=== PATIENT | female | born 1955 | race Hispanic/Latino ===

== ENCOUNTER 2018-09-03 08:55 | Emergency (ER) | payer BC ==
[2018-09-03] MEDS ORDERED: NA CHLORIDE 0.9% 500 ML ONE (10:35)
[2018-09-03] MEDS ORDERED: MECLIZINE HCL 12.5 MG TAB ONE ×2 (10:35→12:17)
[2018-09-03] MEDS ORDERED: ONDANSETRON 4 MG/2 ML VIAL ONE (10:35)
--- NOTE | 2018-09-03 10:48 | RAD REPORT ---
EXAM DESCRIPTION: CT - Head Brain Wo Cont - 09/03/2018 10:37 am CLINICAL HISTORY: Headache, persistent dizziness COMPARISON: None. TECHNIQUE: Axial 5 mm thick images of the head were obtained without IV contrast. All CT scans are performed using dose optimization technique as appropriate and may include automated exposure control or mA/KV adjustment according to patient size. FINDINGS: No intracranial hemorrhage, mass, edema or shift of mid-line structures. No acute cortical based infarction. Mild chronic ischemic changes are scattered in the cerebral white matter. No basal ganglia or brainstem chronic ischemic change confirmed. Mild atrophy changes are present. Ventricles are normal. Mastoid air cells and visualized portions of the paranasal sinuses are clear. No acute bony findings. IMPRESSION: No hemorrhage, mass or acute cortical based infarction identified. Mild chronic ischemic changes are present potentially masking nonhemorrhagic CVA. As clinical findings warrant, MR imaging could be performed if there are ongoing concerns for CVA.
[2018-09-03 11:05] LABS: Absolute Lymphocytes (CBC) 2.5 K/uL (0.7-4.9); Absolute Monocytes 0.6 K/uL (0.1-1.3); Basophils % 0.6 % (0-1.3); Eosinophils % 2.1 % (0-4.4); Hematocrit 42.9 % (36.0-45.0); Lymphocytes % 19.9 % (15.3-44.8); MCH 32.7 pg (27.0-35.0); MCV 96.9 fL (80-100); MPV 8.8 fL (7.6-11.3); Monocytes % 4.8 % (3.3-12.3); RBC Red Blood Cell Count 4.42 M/uL (3.86-4.86)
[2018-09-03 11:27] LABS: ALT/SGPT 23 U/L (12-78); AST/SGOT 12 U/L (15-37); Albumin 3.3 g/dL (3.4-5.0); Alkaline Phosphatase 143 U/L (45-117); BUN Blood Urea Nitrogen 12 mg/dL (7-18); Bicarbonate 26 mmol/L (21-32); Bilirubin Direct 0.1 mg/dL (0-0.2); Bilirubin Total 0.5 mg/dL (0.2-1.0); Glucose Level 100 mg/dL (74-106); Potassium 3.1 mmol/L (3.5-5.1); Sodium Level 140 mmol/L (136-145); Troponin (Emerg Dept Use Only) < 0.02 ng/mL (0.0-0.045)
--- NOTE | 2018-09-03 11:35 | RAD REPORT ---
EXAM DESCRIPTION: Alejandra Single View09/03/2018 10:49 am CLINICAL HISTORY: Cough COMPARISON: October 2017 FINDINGS: The lungs appear clear of acute infiltrate. The heart is normal size IMPRESSION: No acute abnormalities displayed
--- NOTE | 2018-09-03 11:44 | ER ---
Nurse's Notes [facility] Name: Qi Bass Age: 62 yrs Sex: Female : 1955 Arrival Date: 09/03/2018 Time: 08:58 Bed 19 Private MD: Diagnosis: Dizziness and giddiness;Hypokalemia Presentation: 09/03 09:17 Presenting complaint: Patient states: mild, intermittent dizziness that began 2 weeks ss ago then diagnosed with R ear infection. Pt reports when she woke up this morning, the dizziness was much worse when she got up and would move her head to the right. Transition of care: patient was not received from another setting of care. Onset of symptoms was August 20, 2018. Risk Assessment: Do you want to hurt yourself or someone else? Patient reports no desire to harm self or others. Initial Sepsis Screen: Does the patient meet any 2 criteria? No. Patient's initial sepsis screen is negative. Does the patient have a suspected source of infection? No. Patient's initial sepsis screen is negative. Care prior to arrival: None. 09:17 Method Of Arrival: Ambulatory ss 09:17 Acuity: BETY 4 ss Historical: - Allergies: 09:20 No Known Allergies; ss - Home Meds: 09:20 sertraline Oral [Active]; ss - PMHx: 09:20 None; ss - PSHx: 09:20 Cholecystectomy; Tubal ligation; ss - Immunization history:: Adult Immunizations up to date. - Social history:: Smoking status: Patient/guardian denies using tobacco. - Ebola Screening: : Patient denies exposure to infectious person Patient denies travel to an Ebola-affected area in the 21 days before illness onset. - Family history:: not pertinent. Screenin:30 Abuse screen: Denies threats or abuse. Nutritional screening: No deficits noted. em Tuberculosis screening: No symptoms or risk factors identified. Fall Risk None identified. Assessment: 09:30 General: Appears in no apparent distress. comfortable, Behavior is calm, cooperative. em Pain: Denies pain. Neuro: Level of Consciousness is awake, alert, obeys commands, Oriented to person, place, time, situation, Business Services Tech are equal bilaterally Moves all extremities. Gait is unsteady, Speech is normal, Facial symmetry appears normal, Pupils are PERRLA, Reports dizziness, Denies numbness headache photophobia. Cardiovascular: Denies chest pain, shortness of breath, Capillary refill < 3 seconds Patient's skin is warm and dry. Respiratory: Airway is patent Respiratory effort is even, unlabored, Respiratory pattern is regular, symmetrical, Breath sounds are clear bilaterally. GI: Abdomen is flat, Patient currently denies nausea, vomiting. : No signs and/or symptoms were reported regarding the genitourinary system. EENT: No signs and/or symptoms were reported regarding the EENT system. Derm: Skin is intact, Skin is pink, warm \T\ dry. Musculoskeletal: Capillary refill < 3 seconds, Range of motion: intact in all extremities. 09:35 General: The previous assessment is accurate, call light remains within reach. . ss 10:30 Reassessment: Patient appears in no apparent distress at this time. Patient and/or em family updated on plan of care and expected duration. Pain level reassessed. Patient is alert, oriented x 3, equal unlabored respirations, skin warm/dry/pink. Patient denies pain at this time. 11:30 Reassessment: Patient appears in no apparent distress at this time. Patient and/or em family updated on plan of care and expected duration. Pain level reassessed. Patient is alert, oriented x 3, equal unlabored respirations, skin warm/dry/pink. Patient denies pain at this time. Patient states feeling better. Patient states symptoms have improved. Vital Signs: 09:20 BP 173 / 87; Pulse 64; Resp 16; Temp 98.6(TE); Pulse Ox 100% on R/A; Weight 63.5 kg; Height 5 ft. 2 in. (157.48 cm); Pain 0/10; 09:46 BP 160 / 83; Pulse 65; Resp 18; Pulse Ox 98% on R/A; Pain 0/10; em 10:30 BP 140 / 79; Pulse 65; Resp 18; Pulse Ox 99% on R/A; Pain 0/10; em 11:30 BP 159 / 79; Pulse 80; Resp 18; Pulse Ox 99% on R/A; Pain 0/10; em 09:20 Body Mass Index 25.61 (63.50 kg, 157.48 cm) ED Course: 08:58 Patient arrived in ED. mr 09:14 Reeves, Walt, PROFESSOR OF INDUSTRIAL TECHNOLOGY is Primary Nurse. em 09:19 Triage completed. ss 09:20 Arm band placed on right wrist. ss 09:26 Malachi Baldwin MD is Attending Physician. beka 09:30 Patient has correct armband on for positive identification. Bed in low position. Call em light in reach. 10:37 CT Head Brain wo Cont In Process Unspecified. EDMS 10:46 EKG done, by orthopedic technician. reviewed by Malachi Baldwin MD. tc 10:48 XRAY Chest (1 view) In Process Unspecified. EDMS 11:20 US Carotid Artery Bilateral In Process Unspecified. EDMS 11:44 Luis Alberto Garcia MD is Referral Physician. beka 12:20 No provider procedures requiring assistance completed. IV discontinued, intact, em bleeding controlled, No redness/swelling at site. Pressure dressing applied. Administered Medications: 10:57 Drug: Meclizine 25 mg Route: PO; em 11:30 Follow up: Response: No adverse reaction em 10:57 Drug: Zofran 4 mg Route: IVP; Site: right antecubital; ss 11:30 Follow up: Response: No adverse reaction; Nausea is decreased em 10:58 Drug: NS 0.9% 500 ml Route: IV; Rate: bolus; Site: right antecubital; em 11:30 Follow up: IV Status: Completed infusion; IV Intake: 500ml em 11:48 Drug: Potassium Effervescent Tablet 25 mEq Route: PO; em 12:17 Follow up: Response: No adverse reaction em 12:17 Drug: Meclizine 25 mg Route: PO; em 12:20 Follow up: Response: Medication administered at discharge. em Intake: 11:30 IV: 500ml; Total: 500ml. em Outcome: 11:44 Discharge ordered by . beka 12:20 Discharged to home ambulatory, with family. em 12:20 Condition: good 12:20 Discharge instructions given to patient, family, Instructed on discharge instructions, follow up and referral plans. medication usage, Demonstrated understanding of instructions, follow-up care, medications, Prescriptions given X 2. 12:22 Patient left the ED. em Signatures: Dispatcher [employer] EDMalachi Sosa MD MD cha Rivera, Kavitha mr Reeves, Walt, PROFESSOR OF INDUSTRIAL TECHNOLOGY PROFESSOR OF INDUSTRIAL TECHNOLOGY em Audra Pop RN RN ss Berkley Cruz, alumni relations coordinator EKG Ttc
--- NOTE | 2018-09-03 11:44 | EDPHYS ---
Physician Documentation [facility] Name: Qi Bass Age: 62 yrs Sex: Female : 1955 Arrival Date: 09/03/2018 Time: 08:58 Bed 19 Private MD: ED Physician Malachi Baldwin HPI: 09/03 10:23 This 62 yrs old Female presents to ER via Ambulatory with complaints of beka Dizziness. 10:23 The patient presents with dizziness. Onset: The symptoms/episode began/occurred 2 beka day(s) ago. Context: occurred at work. Modifying factors: The symptoms are alleviated by holding head still, the symptoms are aggravated by movement of head, changing position. Associated signs and symptoms: Pertinent positives: headache, nausea. Severity of symptoms: At their worst the symptoms were mild moderate in the emergency department the symptoms have improved mildly. Patient's baseline: Neuro: alert and fully oriented. The patient has experienced similar episodes in the past, a few times. Historical: - Allergies: 09:20 No Known Allergies; ss - Home Meds: 09:20 sertraline Oral [Active]; ss - PMHx: 09:20 None; ss - PSHx: 09:20 Cholecystectomy; Tubal ligation; ss - Immunization history:: Adult Immunizations up to date. - Social history:: Smoking status: Patient/guardian denies using tobacco. - Ebola Screening: : Patient denies exposure to infectious person Patient denies travel to an Ebola-affected area in the 21 days before illness onset. - Family history:: not pertinent. ROS: 10:23 Constitutional: Negative for fever, chills, and weight loss, Eyes: Negative for injury, beka pain, redness, and discharge, ENT: Negative for injury, pain, and discharge, Neck: Negative for injury, pain, and swelling, Cardiovascular: Negative for chest pain, palpitations, and edema, Respiratory: Negative for shortness of breath, cough, wheezing, and pleuritic chest pain, Abdomen/GI: Negative for abdominal pain, nausea, vomiting, diarrhea, and constipation, Back: Negative for injury and pain, : Negative for injury, bleeding, discharge, and swelling, MS/Extremity: Negative for injury and deformity, Skin: Negative for injury, rash, and discoloration, Neuro: Negative for headache, weakness, numbness, tingling, and seizure, Psych: Negative for depression, anxiety, suicide ideation, homicidal ideation, and hallucinations, Allergy/Immunology: Negative for hives, rash, and allergies, Endocrine: Negative for neck swelling, polydipsia, polyuria, polyphagia, and marked weight changes, Hematologic/Lymphatic: Negative for swollen nodes, abnormal bleeding, and unusual bruising. Exam: 10:23 Constitutional: This is a well developed, well nourished patient who is awake, alert, beka and in no acute distress. Head/Face: Normocephalic, atraumatic. Eyes: Pupils equal round and reactive to light, extra-ocular motions intact. Lids and lashes normal. Conjunctiva and sclera are non-icteric and not injected. Cornea within normal limits. Periorbital areas with no swelling, redness, or edema. ENT: Nares patent. No nasal discharge, no septal abnormalities noted. Tympanic membranes are normal and external auditory canals are clear. Oropharynx with no redness, swelling, or masses, exudates, or evidence of obstruction, uvula midline. Mucous membranes moist. Neck: Trachea midline, no thyromegaly or masses palpated, and no cervical lymphadenopathy. Supple, full range of motion without nuchal rigidity, or vertebral point tenderness. No Meningismus. Chest/axilla: Normal chest wall appearance and motion. Nontender with no deformity. No lesions are appreciated. Cardiovascular: Regular rate and rhythm with a normal S1 and S2. No gallops, murmurs, or rubs. Normal PMI, no JVD. No pulse deficits. Respiratory: Lungs have equal breath sounds bilaterally, clear to auscultation and percussion. No rales, rhonchi or wheezes noted. No increased work of breathing, no retractions or nasal flaring. Abdomen/GI: Soft, non-tender, with normal bowel sounds. No distension or tympany. No guarding or rebound. No evidence of tenderness throughout. Back: No spinal tenderness. No costovertebral tenderness. Full range of motion. Skin: Warm, dry with normal turgor. Normal color with no rashes, no lesions, and no evidence of cellulitis. MS/ Extremity: Pulses equal, no cyanosis. Neurovascular intact. Full, normal range of motion. Neuro: Awake and alert, GCS 15, oriented to person, place, time, and situation. Cranial nerves II-XII grossly intact. Motor strength 5/5 in all extremities. Sensory grossly intact. Cerebellar exam normal. Normal gait. Psych: Awake, alert, with orientation to person, place and time. Behavior, mood, and affect are within normal limits. 10:23 Neck: Trachea: is midline with no obvious abnormalities, ROM/movement: is normal, no acute changes. 10:23 Chest/axilla: Inspection: normal, no acute changes, Palpation: is normal, no acute changes, Axilla: are normal, no acute changes, Breasts: are normal. 10:25 Cardiovascular: Heart sounds: normal, normal S1and S2, no S3 or S4, no murmur, no rub, beka no gallop, Edema: is not appreciated, JVD: is not appreciated. Vital Signs: 09:20 BP 173 / 87; Pulse 64; Resp 16; Temp 98.6(TE); Pulse Ox 100% on R/A; Weight 63.5 kg; ss Height 5 ft. 2 in. (157.48 cm); Pain 0/10; 09:46 BP 160 / 83; Pulse 65; Resp 18; Pulse Ox 98% on R/A; Pain 0/10; em 10:30 BP 140 / 79; Pulse 65; Resp 18; Pulse Ox 99% on R/A; Pain 0/10; em 11:30 BP 159 / 79; Pulse 80; Resp 18; Pulse Ox 99% on R/A; Pain 0/10; em 09:20 Body Mass Index 25.61 (63.50 kg, 157.48 cm) MDM: 09:26 Patient medically screened. [facility] 10:25 Data reviewed: vital signs, nurses notes, lab test result(s), EKG, radiologic studies, [facility] CT scan, doppler, plain films. 09/03 10:22 Order name: Basic Metabolic Panel; Complete Time: 11:41 [facility] 09/03 10:22 Order name: CBC with Diff; Complete Time: 11:41 [facility] 09/03 10:22 Order name: LFT's; Complete Time: 11:41 [facility] 09/03 10:22 Order name: Magnesium; Complete Time: 11:41 [facility] 09/03 10:22 Order name: Troponin (emerg Dept Use Only); Complete Time: 11:41 [facility] 09/03 10:22 Order name: XRAY Chest (1 view); Complete Time: 11:41 [facility] 09/03 10:22 Order name: EKG; Complete Time: 10:23 [facility] 09/03 10:22 Order name: CT Head Brain wo Cont; Complete Time: 11:41 [facility] 09/03 10:22 Order name: US Carotid Artery Bilateral; Complete Time: 12:01 [facility] 09/03 10:22 Order name: Cardiac monitoring; Complete Time: 10:58 [facility] 09/03 10:22 Order name: EKG - Nurse/Tech; Complete Time: 10:58 [facility] 09/03 10:22 Order name: IV Saline Lock; Complete Time: 10:58 [facility] 09/03 10:22 Order name: Labs collected and sent; Complete Time: 10:58 [facility] 09/03 10:22 Order name: O2 Per Protocol; Complete Time: 10:58 [facility] 09/03 10:22 Order name: O2 Sat Monitoring; Complete Time: 10:58 [facility] Administered Medications: 10:57 Drug: Meclizine 25 mg Route: PO; em 11:30 Follow up: Response: No adverse reaction em 10:57 Drug: Zofran 4 mg Route: IVP; Site: right antecubital; ss 11:30 Follow up: Response: No adverse reaction; Nausea is decreased em 10:58 Drug: NS 0.9% 500 ml Route: IV; Rate: bolus; Site: right antecubital; em 11:30 Follow up: IV Status: Completed infusion; IV Intake: 500ml em 11:48 Drug: Potassium Effervescent Tablet 25 mEq Route: PO; em 12:17 Follow up: Response: No adverse reaction em 12:17 Drug: Meclizine 25 mg Route: PO; em 12:20 Follow up: Response: Medication administered at discharge. em Disposition: 09/03/18 11:44 Discharged to Home. Impression: Dizziness and giddiness, Hypokalemia. - Condition is Stable. - Discharge Instructions: Benign Positional Vertigo, Dizziness, Motion Sickness, Vertigo, Tobacco Use Disorder, Vertigo, [id number], Aspirin and Your Heart, Hypokalemia, Dizziness, [id number]. - Prescriptions for Meclizine 25 mg Oral Tablet - take 1 tablet by ORAL route every 8 hours As needed; 30 tablet. Zofran 4 mg Oral Tablet - take 1 tablet by ORAL route every 12 hours As needed; 10 tablet. - Medication Reconciliation Form, Thank You Letter, Antibiotic Education, Prescription Opioid Use, Work release form form. - Follow up: Private Physician; When: 2 - 3 days; Reason: Recheck today's complaints, Continuance of care, Re-evaluation by your physician. Follow up: Luis Alberto Garcia MD; When: 2 - 3 days; Reason: Recheck today's complaints, Re-evaluation by your physician. - Problem is new. - Symptoms have improved. Signatures: Dispatcher [employer] EDMalachi Sosa MD MD cha Munoz, Edgar, WELL FLOW OPERATOR WELL FLOW OPERATOR em Audra Pop, MEI RN ss Corrections: (The following items were deleted from the chart) 11:44 11:44 09/03/2018 11:44 Discharged to Home. Impression: Dizziness and giddiness; beka Hypokalemia. Condition is Stable. Discharge Instructions: Benign Positional Vertigo, Dizziness, Motion Sickness, Vertigo, Vertigo, [id number], Aspirin and Your Heart, Dizziness, [id number]. Prescriptions for Meclizine 25 mg Oral Tablet - take 1 tablet by ORAL route every 8 hours As needed; 30 tablet, Zofran 4 mg Oral Tablet - take 1 tablet by ORAL route every 12 hours As needed; 10 tablet. and Forms are Medication Reconciliation Form, Thank You Letter, Antibiotic Education, Prescription Opioid Use. Follow up: Private Physician; When: 2 - 3 days; Reason: Recheck today's complaints, Continuance of care, Re-evaluation by your physician. Problem is new. Symptoms have improved. beka 12:22 11:44 09/03/2018 11:44 Discharged to Home. Impression: Dizziness and giddiness; em Hypokalemia. Condition is Stable. Discharge Instructions: Benign Positional Vertigo, Dizziness, Motion Sickness, Vertigo, Vertigo, Wqif-[id number], Aspirin and Your Heart, Dizziness, [id number]. Prescriptions for Meclizine 25 mg Oral Tablet - take 1 tablet by ORAL route every 8 hours As needed; 30 tablet, Zofran 4 mg Oral Tablet - take 1 tablet by ORAL route every 12 hours As needed; 10 tablet. and Forms are Medication Reconciliation Form, Thank You Letter, Antibiotic Education, Prescription Opioid Use. Follow up: Private Physician; When: 2 - 3 days; Reason: Recheck today's complaints, Continuance of care, Re-evaluation by your physician. Follow up: Luis Alberto Garcia; When: 2 - 3 days; Reason: Recheck today's complaints, Re-evaluation by your physician. Problem is new. Symptoms have improved. beka
--- NOTE | 2018-09-03 11:53 | RAD REPORT ---
EXAM DESCRIPTION: US - CP - 09/03/2018 11:22 am CLINICAL HISTORY: Dizziness, syncope, stroke-like symptoms COMPARISON: None. TECHNIQUE: Real-time sonographic evaluation of both carotid systems was performed. Jung scale and Do ppler interrogation were performed with waveform tracing bilaterally. FINDINGS: Normal high resistance waveforms are noted in both external carotid arteries. The common c arotid arteries and internal carotid arteries show normal low resistance waveforms. No significant plaquing changes are seen. No dissection or other significant luminal narrowing seen. Left common carotid and bilateral internal carotid artery's are tortuous. Peak systolic and end diast olic velocity values and the ICA/CCA ratios are in the non-hemodynamically significant range. Antegrade flow seen in both vertebral arteries. Velocity values and ratios were recorded and are retained in the patient's imaging records. IMPRESSION: No significant atherosclerotic changes noted. No evidence of a hemodynamically significant stenosis.
[2018-09-03] MEDS ORDERED: POTASSIUM 25 MEQ EFFERV TAB ONE (12:02)
--- NOTE | 2018-09-03 18:47 | EKG ---
Test Date: 2018-09-03 Test Time: 10:40:36 Public Health Clinical Nurse Specialist: AER MEASUREMENT RESULTS: Intervals: Rate: 59 IN: 160 QRSD: 80 QT: 454 QTc: 449 [place]: P: 20 IN: 160 QRS: 2 T: -8 INTERPRETIVE STATEMENTS: Sinus bradycardia Cannot rule out Anterior infarct, age undetermined Abnormal ECG No previous ECG available for comparison Electronically Signed On 09-03-18 18:44:54 ASSISTANT TENNIS PROFESSIONAL by Tyron Roberts
== END 2018-09-03 12:22 | disposition home or self-care (01) ==
LOC: ER 08:55
DX: E87.6 Hypokalemia (principal)
CPT/HCPCS: 36415; 70450; 71045; 80048; 80076; 83735; 84484; 85025; 93005; 93880; 96361; 96374; 99284; J2405